=== PATIENT | male | born 1950 | race Caucasian/White ===

== ENCOUNTER 2019-01-18 05:50 | Day surgery (SDC) | payer OTHER, BC ==
[~2019-01-18] VITALS: Ht 188 cm; Wt 124.7 kg
[2019-01-18] MEDS ORDERED: LR 1,000 ML IV SCH (08:24)
[2019-01-18] MEDS ORDERED: MORPHINE 4 MG/ML INJ. SYRINGE IVP PRN ×3 (08:30)
[2019-01-18] MEDS ORDERED: METOCLOPRAMIDE HCL 10 MG/2 ML VIAL IVP PRN (08:30)
[2019-01-18] MEDS ORDERED: ONDANSETRON HCL 4 MG/2 ML VIAL ONE (09:10)
[2019-01-18] MEDS ORDERED: LIDOCAINE/EPI 1% 1:100000 20 ML VIAL INJ ONE (09:10)
[2019-01-18] MEDS ORDERED: DEXAMETHASONE SOD PHOSPHATE 4 MG/ML VIAL ONE (09:10)
[2019-01-18] MEDS ORDERED: MUPIROCIN 2% TOPICAL OINTMENT 22 GM ONE (09:10)
[2019-01-18] MEDS ORDERED: GLYCOPYRROLATE 0.2 MG/ML VIAL ONE (09:10)
[2019-01-18] MEDS ORDERED: MIDAZOLAM HCL 5 MG/ML VIAL (VERSED) IV ONE (09:10)
[2019-01-18] MEDS ORDERED: OXYMETAZOLINE HCL 0.05% NASAL SPRAY NS ONE (09:10)
[2019-01-18] MEDS ORDERED: PHENYLEPHRINE HCL 0.25% NASAL 15 ML NASPR NS ONE (09:10)
[2019-01-18] MEDS ORDERED: LR 1,000 ML IV.SOLN IV ONE (09:10)
[2019-01-18] MEDS ORDERED: WATER FOR IRRIGATION,STERILE 1,000 ML IRRIG.SOLN IR ONE (09:10)
[2019-01-18] MEDS ORDERED: fentaNYL CITRATE 250 MCG/5 ML AMP ONE (09:10)
[2019-01-18] MEDS ORDERED: SEVOFLURANE 15 MIN GAS INH ONE (09:10)
[2019-01-18] MEDS ORDERED: NEOSTIGMINE METHYLSULFATE 1 MG/ML, 10 ML VIAL ONE (09:10)
[2019-01-18] MEDS ORDERED: NS 250 ML IV.SOLN IV ONE (09:10)
[2019-01-18] MEDS ORDERED: PROPOFOL 200MG/ 20ML VIAL (DIPRIVAN) IV ONE (09:10)
[2019-01-18] MEDS ORDERED: ROCURONIUM BROMIDE 10 MG/ML (ZEMURON) ONE (09:10)
[2019-01-18 10:10] VITALS: BP_SYST 163
== END 2019-01-18 12:10 | disposition home or self-care (01) ==
LOC: SDS 05:50 → SMU 05:50 → SDS 12:10
PROVIDERS: ATTEND Otolaryngology
DX: J34.2 Deviated nasal septum (principal); J34.89 Other specified disorders of nose and nasal sinuses; E11.9 Type 2 diabetes mellitus without complications; I10 Essential (primary) hypertension; E66.01 Morbid (severe) obesity due to excess calories; M19.90 Unspecified osteoarthritis, unspecified site; E11.40 Type 2 diabetes mellitus with diabetic neuropathy, unspecified; Z79.899 Other long term (current) drug therapy; Z98.890 Other specified postprocedural states; K21.9 Gastro-esophageal reflux disease without esophagitis
CPT/HCPCS: 30140; 30520; 88305; 88311; J1100; J2250; J2405; J2704; J2710; J3010; J3490; J7050; J7120; 88304